=== PATIENT | male | born 1960 | race African-American/Black ===

== ENCOUNTER 2024-07-22 19:30 | Inpatient (IN) | payer OTHER ==
[2024-07-22 20:42] VITALS: BMI 25.5
[2024-07-22] MEDS ORDERED: ACETAMINOPHEN 325 MG TABLET (FP) PO PRN (23:18)
[2024-07-22] MEDS ORDERED: POLYETHYLENE GLYCOL (HEALTHYLAX) 3350 17 GM PACKET PO PRN (23:18)
[2024-07-22] MEDS ORDERED: METHOCARBAMOL 500 MG TABLET PO PRN (23:18)
[2024-07-22] MEDS ORDERED: MAG HYDROX/AL HYDROX/SIMETH 30 ML UNIT-DOSE CUP PO PRN (23:18)
[2024-07-22] MEDS ORDERED: NICOTINE POLACRILEX 2 MG GUM BUC PRN (23:18)
[2024-07-22] MEDS ORDERED: BENZONATATE 200 MG CAPSULE PO PRN (23:18)
[2024-07-22] MEDS ORDERED: hydrOXYzine PAMOATE 25 MG CAPSULE (FP) PO PRN (23:18)
[2024-07-22] MEDS ORDERED: DICYCLOMINE HCL 10 MG CAPSULE PO PRN (23:18)
[2024-07-22] MEDS ORDERED: NALOXONE (NARCAN) HCL 4 MG/0.1 ML SPRAY NS PRN (23:18)
[2024-07-22] MEDS ORDERED: LOPERAMIDE HCL 2 MG CAPSULE PO PRN (23:18)
[2024-07-22] MEDS ORDERED: NICOTINE POLACRILEX 2 MG LOZENGE BC PRN (23:18)
[2024-07-22] MEDS ORDERED: ONDANSETRON *ODT* 4 MG TABLET SL PRN (23:18)
[2024-07-22] MEDS ORDERED: guaiFENesin 600 MG TABLET.ER (FP) PO PRN (23:18)
[2024-07-22] MEDS ORDERED: BENZOCAINE/MENTHOL (CHLORASEPTIC ) LOZENGE MM PRN (23:18)
[2024-07-22] MEDS ORDERED: MAGNESIUM HYDROX 2400MG/30ML ORAL SUSPENSION 30 ML CUP PO PRN (23:18)
[2024-07-23] MEDS ORDERED: LORazepam 1 MG TABLET PO PRN (08:43)
[2024-07-23] MEDS: TAMSULOSIN HCL 0.4 MG CAP PO SCH (10:20)
[2024-07-23] MEDS: ASPIRIN 81 MG CHEWABLE TABLETS PO SCH (10:20)
[2024-07-23] MEDS: PRENATAL VITAMINS W/ FOLIC ACID TABLET (FP) PO SCH (10:20)
[2024-07-23] MEDS: ENALAPRIL MALEATE 10 MG TABLET PO SCH (10:20)
[2024-07-23] MEDS: LORazepam 2 MG TABLET PO SCH (10:20)
[2024-07-23 11:08] LABS: HEMATOCRIT 35.3 % (35.4-49); HEMOGLOBIN 11.8 GM/dL (11.7-16.9); MCH 27.6 pg (25.7-33.7); MCHC 33.5 g/dl (32.0-35.9); MEAN CELL VOLUME 82.5 fl (80-96); MEAN PLT VOLUME 8.6 fl (7.5-11.1); PLATELET COUNT 342 10^3/uL (134-434); RBC 4.27 M/mm3 (4.00-5.60); WHITE BLOOD COUNT 4.7 K/mm3 (4.0-10.0)
[2024-07-23 11:17] LABS: CHLORIDE 105 mmol/L (98-107); POTASSIUM 3.8 mmol/L (3.5-5.1); SODIUM 140 mmol/L (136-145)
[2024-07-23 11:21] LABS: ALBUMIN 3.1 g/dl (3.4-5.0); ANION GAP 6 mmol/L (4-13); BLOOD UREA NITROGEN 13.6 mg/dL (7-18); CO2 29 mmol/L (21-32); GLUCOSE,RANDOM 135 mg/dL (74-106)
[2024-07-23 11:24] LABS: SGOT/AST 19 U/L (15-37); SGPT/ALT 25 U/L (13-61)
[2024-07-23 11:26] LABS: BILIRUBIN,TOTAL 0.4 mg/dL (0.2-1); TOT PROT 6.1 g/dl (6.4-8.2)
[2024-07-23 11:27] LABS: ALK PHOS 156 U/L (45-117)
[2024-07-23] MEDS: NALTREXONE HCL 50 MG TABLET PO ONE (15:43)
[2024-07-23] MEDS: THIAMINE 100 MG TABLET PO SCH (22:13)
[2024-07-23] MEDS: ATORVASTATIN CA 80 MG TABLET (FP) PO SCH (22:13)
[2024-07-23] MEDS: CLOPIDOGREL BISULFATE 75 MG TABLET (FP) PO SCH (22:13)
[2024-07-23] MEDS: MELATONIN 5 MG TABLETS PO SCH (22:13)
[2024-07-24] MEDS ORDERED: NALTREXONE HCL 50 MG TABLET PO SCH (10:00)
[2024-07-24] MEDS: DOXYCYCLINE HYCLATE 100 MG TABLET PO SCH (10:39)
[2024-07-25] MEDS ORDERED: LORazepam 1 MG TABLET PO SCH (05:00)
[2024-07-26] MEDS ORDERED: LORazepam 0.5 MG TABLET PO PRN
[2024-07-26] MEDS ORDERED: LORazepam 0.5 MG TABLET PO SCH (05:00)
[2024-07-26 21:04] VITALS: RESP 16
[2024-07-27] MEDS: LORazepam 0.5 MG TABLET PO ONE (05:09)
[2024-07-27 08:47] VITALS: BP 155/73; PULSE 78; TEMP 97.5
== END 2024-07-27 09:49 | disposition home or self-care (01) | DRG 775 ==
LOC: YASAS 19:30 → Y3N 23:47
PROVIDERS: ADMIT Allergy & Immunology; ATTEND Allergy & Immunology
PROC: HZ2ZZZZ Detoxification Services for Substance Abuse Treatment (ICD-10-PCS; principal; 2024-07-22)
DX: F10.230 Alcohol dependence with withdrawal, uncomplicated (principal); E78.5 Hyperlipidemia, unspecified; I10 Essential (primary) hypertension; N40.0 Benign prostatic hyperplasia without lower urinary tract symptoms; R26.89 Other abnormalities of gait and mobility; Z86.73 Personal history of transient ischemic attack (TIA), and cerebral infarction without residual deficits; Z86.19 Personal history of other infectious and parasitic diseases; Z99.89 Dependence on other enabling machines and devices
CPT/HCPCS: 36415; 80053; 80305; 80307; 85027; 86593; 86780; 93005; 93010

== ENCOUNTER 2024-07-28 11:25 | Inpatient (IN) | payer OTHER ==
[2024-07-28] MEDS ORDERED: BENZONATATE 200 MG CAPSULE PO PRN (11:53)
[2024-07-28] MEDS ORDERED: IBUPROFEN 600 MG TABLET (FP) PO PRN (11:53)
[2024-07-28] MEDS ORDERED: NICOTINE POLACRILEX 2 MG LOZENGE BC PRN (11:53)
[2024-07-28] MEDS ORDERED: IBUPROFEN 400 MG TABLET (FP) PO PRN (11:53)
[2024-07-28] MEDS ORDERED: NALOXONE HCL 0.4 MG/ML VIAL IVPUSH PRN (11:53)
[2024-07-28] MEDS ORDERED: NALOXONE (NARCAN) HCL 4 MG/0.1 ML SPRAY NS PRN (11:53)
[2024-07-28] MEDS ORDERED: POLYETHYLENE GLYCOL (HEALTHYLAX) 3350 17 GM PACKET PO PRN (11:53)
[2024-07-28] MEDS ORDERED: DOCUSATE SODIUM 100 MG CAPSULE (FP) PO PRN (11:53)
[2024-07-28] MEDS ORDERED: MAGNESIUM HYDROX 2400MG/30ML ORAL SUSPENSION 30 ML CUP PO PRN (11:53)
[2024-07-28] MEDS ORDERED: guaiFENesin 600 MG TABLET.ER (FP) PO PRN (11:53)
[2024-07-28 13:14] VITALS: BMI 26.2
[2024-07-28] MEDS: DOXYCYCLINE HYCLATE 100 MG TABLET PO SCH (17:19)
[2024-07-28] MEDS: ATORVASTATIN CA 80 MG TABLET (FP) PO SCH (21:24)
[2024-07-28] MEDS: MELATONIN 5 MG TABLETS PO SCH (21:25)
[2024-07-28] MEDS: THIAMINE 100 MG TABLET PO SCH (21:25)
[2024-07-29] MEDS: TAMSULOSIN HCL 0.4 MG CAP PO SCH (07:45)
[2024-07-29] MEDS: LOPERAMIDE HCL 2 MG CAPSULE PO PRN (07:49)
[2024-07-29] MEDS: PRENATAL VITAMINS W/ FOLIC ACID TABLET (FP) PO SCH (09:33)
[2024-07-29] MEDS: ASPIRIN 81 MG CHEWABLE TABLETS PO SCH (09:33)
[2024-07-29] MEDS: ENALAPRIL MALEATE 10 MG TABLET PO SCH (09:33)
[2024-07-29] MEDS: CLOPIDOGREL BISULFATE 75 MG TABLET (FP) PO SCH (09:33)
[2024-07-29] MEDS: TUBERCULIN PPD 5 TU/0.1ML VIAL ID ONE (09:36)
[2024-07-30] MEDS: MAG HYDROX/AL HYDROX/SIMETH 30 ML UNIT-DOSE CUP PO PRN (03:42)
[2024-07-30] MEDS ORDERED: ATORVASTATIN CA 40 MG TABLET (FP) ONE (21:22)
[2024-07-31] MEDS ORDERED: ATORVASTATIN CA 40 MG TABLET (FP) ONE (20:09)
[2024-08-01] MEDS ORDERED: ATORVASTATIN CA 40 MG TABLET (FP) ONE (21:32)
[2024-08-02] MEDS: NICOTINE POLACRILEX 2 MG GUM BUC PRN (13:27)
[2024-08-02] MEDS ORDERED: ATORVASTATIN CA 40 MG TABLET (FP) ONE (20:16)
[2024-08-03] MEDS: BENZOCAINE/MENTHOL (CHLORASEPTIC ) LOZENGE MM PRN (18:22)
[2024-08-03] MEDS ORDERED: ATORVASTATIN CA 40 MG TABLET (FP) ONE (21:24)
[2024-08-04] MEDS ORDERED: guaiFENesin 600 MG TABLET.ER (FP) PO PRN (11:01)
[2024-08-04] MEDS ORDERED: BENZONATATE 200 MG CAPSULE PO PRN (11:01)
[2024-08-04] MEDS: amLODIPine BESYLATE 2.5 MG TABLET (FP) PO SCH (11:40)
[2024-08-04] MEDS: TOLNAFTATE 1% CREAM 15 GM TUBE TP SCH (11:41)
[2024-08-04] MEDS: ACETAMINOPHEN 325 MG TABLET (FP) PO PRN (16:27)
[2024-08-04] MEDS ORDERED: ATORVASTATIN CA 40 MG TABLET (FP) ONE (21:04)
[2024-08-04] MEDS: HYDROCORTISONE 2.5% TOPICAL CREAM 30 GM TUBE TP SCH (21:05)
[2024-08-04] MEDS: TOLNAFTATE 1% POWDER 45 GM POW TP SCH (21:06)
[2024-08-04] MEDS: OXYMETAZOLINE 0.05% NASAL SOLUTION 15 ML BOTTLE NS PRN (21:08)
[2024-08-05] MEDS ORDERED: ATORVASTATIN CA 40 MG TABLET (FP) ONE (21:17)
[2024-08-06] MEDS: amLODIPine BESYLATE 5 MG TABLET (FP) PO SCH (10:47)
[2024-08-06] MEDS ORDERED: ATORVASTATIN CA 40 MG TABLET (FP) ONE (20:41)
[2024-08-07] MEDS: SALICYLIC ACID (WART REMOVER) 9 ML LIQUID TP SCH (14:43)
[2024-08-07] MEDS ORDERED: ATORVASTATIN CA 40 MG TABLET (FP) ONE (21:28)
[2024-08-08] MEDS ORDERED: ATORVASTATIN CA 40 MG TABLET (FP) ONE (20:05)
[2024-08-09] MEDS ORDERED: ATORVASTATIN CA 40 MG TABLET (FP) ONE (20:36)
[2024-08-10] MEDS ORDERED: ATORVASTATIN CA 40 MG TABLET (FP) ONE (20:06)
[2024-08-11] MEDS: amLODIPine BESYLATE 5 MG TABLET (FP) PO ONE (18:25)
[2024-08-11] MEDS ORDERED: ATORVASTATIN CA 40 MG TABLET (FP) ONE (21:28)
[2024-08-12] MEDS: amLODIPine BESYLATE 5 MG TABLET (FP) PO SCH (09:49)
[2024-08-14] MEDS ORDERED: ATORVASTATIN CA 40 MG TABLET (FP) ONE (20:15)
[2024-08-15] MEDS ORDERED: ATORVASTATIN CA 40 MG TABLET (FP) ONE (20:19)
[2024-08-17] MEDS ORDERED: ATORVASTATIN CA 40 MG TABLET (FP) ONE (21:26)
[2024-08-18] MEDS: amLODIPine BESYLATE 10 MG TABLET (FP) PO SCH (10:44)
[2024-08-18] MEDS ORDERED: ATORVASTATIN CA 40 MG TABLET (FP) ONE (20:23)
[2024-08-20] MEDS: TOLNAFTATE 1% POWDER 45 GM POW TP SCH (12:17)
[2024-08-20] MEDS ORDERED: NALTREXONE HCL 50 MG TABLET PO SCH (13:45)
[2024-08-20] MEDS: NALTREXONE HCL 50 MG TABLET PO ONE (14:36)
[2024-08-20] MEDS: BACLOFEN 10 MG TABLET (FP) PO SCH (21:07)
[2024-08-21] MEDS: NALTREXONE HCL 50 MG TABLET PO SCH (10:01)
[2024-08-21] MEDS: TOLNAFTATE 1% POWDER 45 GM POW TP SCH (21:29)
[2024-08-22] MEDS ORDERED: ATORVASTATIN CA 40 MG TABLET (FP) ONE (19:37)
[2024-08-23] MEDS ORDERED: ATORVASTATIN CA 40 MG TABLET (FP) ONE (20:07)
[2024-08-26 05:24] VITALS: RESP 16; TEMP 97.3
[2024-08-26 09:18] VITALS: BP 133/71; PULSE 75
== END 2024-08-26 09:59 | disposition home or self-care (01) | DRG 772 ==
LOC: YASAS 11:25 → Y3NR 13:20 → Y3W 07-30 10:10
PROVIDERS: ADMIT Psychiatry & Neurology Pain Medicine; ATTEND Psychiatry & Neurology Pain Medicine
PROC: HZ42ZZZ Group Counseling for Substance Abuse Treatment, Cognitive-Behavioral (ICD-10-PCS; principal; 2024-07-28)
DX: F10.20 Alcohol dependence, uncomplicated (principal); F14.20 Cocaine dependence, uncomplicated; F17.210 Nicotine dependence, cigarettes, uncomplicated; F32.A Depression, unspecified; I10 Essential (primary) hypertension; J45.909 Unspecified asthma, uncomplicated; K64.4 Residual hemorrhoidal skin tags; B35.1 Tinea unguium; N40.0 Benign prostatic hyperplasia without lower urinary tract symptoms; Z20.2 Contact with and (suspected) exposure to infections with a predominantly sexual mode of transmission; Z86.73 Personal history of transient ischemic attack (TIA), and cerebral infarction without residual deficits
CPT/HCPCS: 0241U-QW; 80305; 80307; 82962; 87811; J0475